=== PATIENT | female | born 1945 | race Caucasian/White ===

== ENCOUNTER → 2020-10-04 | Outpatient (CLI) | payer OTHER ==
--- NOTE | 2020-10-04 14:50 | KCIC ---
EXAM: CT coronary artery calcium screening; radiologist over read. HISTORY: Coronary artery calcium screening. Hyperlipidemia. TECHNIQUE: Computed tomographic images of the chest were obtained without contrast. Multiplanar refor matting was performed. *One or more of the following individualized dose reduction techniques were utilized for this examina tion: 1. Automated exposure control. 2. Adjustment of the mA and/or kV according to patient size. 3. Use of iterative reconstruction technique. COMPARISON: None. FINDINGS: The heart is normal in size. The aorta is normal in caliber. There is a 3 mm nodule along t he right minor pleural fissure, consistent with a fissural lymph node. There is a 2 mm pleural-based nodule within the lateral right lower lobe, likely due to subsegmental atelectasis. There is medial r ight basilar atelectasis. There is no lymphadenopathy. There is a moderate hiatal hernia. There is no acute finding involving the osseous structures or upper abdomen. Coronary artery calcium score: Left main artery - 0 Left anterior descending - 24.7 Left circumflex - 0 Right coronary artery - 5.0 Posterior descending artery - 0 TOTAL = 29.7 IMPRESSION: 1. Coronary artery calcium score of 29.7. There is mild atherosclerotic plaque. 2. Small benign pleural nodules. No suspicious nodule is seen. There is no acute thoracic finding. 3. Moderate hiatal hernia. Electronically signed by: Sierra Veloz MD (10/04/2020 2:48 PM) [id number]
== END ==
LOC: KCIC CT 12:22
PROVIDERS: ATTEND Family Medicine
DX: I25.10 Atherosclerotic heart disease of native coronary artery without angina pectoris (principal); R91.1 Solitary pulmonary nodule; K44.9 Diaphragmatic hernia without obstruction or gangrene; E78.5 Hyperlipidemia, unspecified
CPT/HCPCS: 75571